=== PATIENT | female | born 1990 | race Two or more races ===

== ENCOUNTER → 2023-07-29 | Outpatient (REF) | payer OTHER | LOC: M SFHCWAGY 16:55 | PROVIDERS: ATTEND Obstetrics & Gynecology | DX: Z36.89 Encounter for other specified antenatal screening (principal); Z3A.36 36 weeks gestation of pregnancy ==

== ENCOUNTER 2023-08-04 20:20 | Outpatient (CLI) | payer OTHER ==
[~2023-08-04] VITALS: Ht 157.5 cm; Wt 80.2 kg
[2023-08-04] MEDS ORDERED: PRENTAB9 PO (20:31)
[2023-08-04 20:39] VITALS: BP 117/74
[2023-08-04 21:13] LABS: APPEARANCE, URINE HAZY (CLEAR); BACTERIA, URINE AUTO 1+ (NEGATIVE); BILIRUBIN, URINE AUTO 1+ (NEGATIVE); BLOOD, URINE BLOOD NEGATIVE (NEGATIVE); CALCIUM OXALATE CRYSTALS SMALL; COLOR, URINE AMBER (YELLOW); GLUCOSE, URINE (UA) AUTO NEGATIVE (NEGATIVE); KETONE, URINE AUTO TRACE mg/dL (NEGATIVE); LEUKOCYTE ESTERASE, URINE AUTO NEGATIVE (NEGATIVE); MUCUS, URINE SMALL (NEGATIVE); NITRITE, URINE AUTO NEGATIVE (NEGATIVE); PROTEIN, URINE AUTO 2+ mg/dL (NEGATIVE); RBC, URINE AUTO 1 /HPF (0-3); SPECIFIC GRAVITY URINE AUTO 1.032 (1.002-1.035); SQUAMOUS EPITHELIAL CELL UR AU 10 /HPF (0-6); WBC, URINE AUTO 3 /HPF (0-3)
[2023-08-04] MEDS: LR 500 ML IV ONE (22:10)
[2023-08-04 22:30] LABS: BASO % 0.3 % (0.0-1.0); EOS # 0.1 10^3/uL (0.0-0.5); EOS % 0.5 % (0.0-3.0); HEMATOCRIT 31.9 % (36.0-47.0); HEMOGLOBIN 10.7 g/dl (12.0-15.5); LYMPH # 2.3 10^3/uL (1.5-5.0); LYMPH % 19.3 % (24.0-44.0); MEAN CORPUSCULAR HGB CONC 33.5 g/dl (32.0-36.5); MEAN CORPUSCULAR VOLUME 80.6 fl (80.0-96.0); MONO # 0.9 10^3/uL (0.0-0.8); MONO % 7.7 % (2.0-8.0); NEUTROPHILS # 8.6 10^3/uL (1.5-8.5); NEUTROPHILS % 71.9 % (36.0-66.0); PLATELET COUNT, AUTOMATED 302 10^3/uL (150-450); RED BLOOD COUNT 3.96 10^6/uL (4.00-5.40); WHITE BLOOD COUNT 11.9 10^3/uL (4.0-10.0)
[2023-08-04 22:54] VITALS: BP 108/71
[2023-08-04] MEDS: LR 1,000 ML IV SCH (23:49)
== END 2023-08-04 23:58 | disposition home or self-care (01) ==
LOC: M LDO 20:20
PROVIDERS: ATTEND Obstetrics & Gynecology
DX: O47.1 False labor at or after 37 completed weeks of gestation (principal); Z3A.37 37 weeks gestation of pregnancy; Z87.59 Personal history of other complications of pregnancy, childbirth and the puerperium
CPT/HCPCS: 59025; 81001; 85025; G0463

== ENCOUNTER 2023-08-17 12:43 | Inpatient (IN) | payer OTHER ==
[2023-08-17] VITALS (24 sets, daily range): BP systolic 86–117; BP diastolic 50–76
[~2023-08-17] VITALS: Ht 157.5 cm; Wt 79.6 kg
[~2023-08-17 12:43] MED LIST: PRENTAB9 PO
[2023-08-17] MEDS ORDERED: LIDOCAINE 1% MDV 20ML VIAL INFIL PRN (12:50)
[2023-08-17] MEDS ORDERED: CARBOPROST TROMETHAMINE 250 MCG/ML AMP IM PRN (12:50)
[2023-08-17] MEDS ORDERED: OXYTOCIN INJ 10UNITS/ML 1ML VIAL IM PRN (12:50)
[2023-08-17] MEDS ORDERED: TRANEXAMIC ACID INJection 1,000 MG in NS 100 ML IV PRN (12:50)
[2023-08-17] MEDS ORDERED: METHYLERGONOVINE MALEATE 0.2MG/ML 1ML VIAL IM PRN (12:50)
[2023-08-17] MEDS ORDERED: OXYTOCIN DRIP 30 UNITS in IV 1 EA IV PRN (12:50)
[2023-08-17] MEDS ORDERED: ASPI-226 PO (13:01)
[2023-08-17] MEDS ORDERED: HOME MED LIST COMPLETE! XX SCH (13:05)
[2023-08-17 14:11] LABS: HEMATOCRIT 32.7 % (36.0-47.0); HEMOGLOBIN 10.9 g/dl (12.0-15.5); MEAN CORPUSCULAR HEMOGLOBIN 26.5 pg (27.0-33.0); MEAN CORPUSCULAR HGB CONC 33.3 g/dl (32.0-36.5); MEAN CORPUSCULAR VOLUME 79.4 fl (80.0-96.0); PLATELET COUNT, AUTOMATED 292 10^3/uL (150-450); RED BLOOD COUNT 4.12 10^6/uL (4.00-5.40); WHITE BLOOD COUNT 9.4 10^3/uL (4.0-10.0)
[2023-08-17] MEDS: miSOPROStol 50MCG 1/2 TABLET PO SCH (14:17)
[2023-08-17 15:11] LABS: HEPATITIS C VIRUS ABY INDEX < 0.02 INDEX (<0.8)
[2023-08-17] MEDS: LR 1,000 ML IV SCH (18:23)
[2023-08-17] MEDS: OXYTOCIN DRIP 30 UNITS in IV 1 EA IV SCH (18:24)
[2023-08-17] MEDS ORDERED: NALOXONE INJ 0.4MG/1ML VIAL IV PRN (19:50)
[2023-08-17] MEDS ORDERED: diphenhydrAMINE 50MG/ML VIAL IV PRN (19:50)
[2023-08-17] MEDS ORDERED: EPIDURAL/PCA KEYS XX PRN (19:50)
[2023-08-17] MEDS ORDERED: ONDANSETRON 4MG 2ML VIAL IV PRN (19:50)
[2023-08-17] MEDS: LR 500 ML IV PRN (20:05)
[2023-08-17] MEDS: FENTANYL/ROPIVACAINE/NACL BAG 100 ML EPIDURAL SCH (20:05)
[2023-08-18] VITALS (21 sets, daily range): BP systolic 83–118; BP diastolic 50–72; O2SAT 98
[2023-08-18] MEDS: ePHEDrine SULFATE 25 MG/5 ML(5MG/ML) SYRINGE IVP PRN (01:50)
[2023-08-18] MEDS ORDERED: RHO(D) IMMUNE GLOBULIN/MALTOSE 500MCG(2500IU)/2.2ML VIAL (WINRHO) IM SCH (04:30)
[2023-08-18] MEDS ORDERED: ACETAMINOPHEN TAB 650MG DOSE (2X325MG) PO PRN (04:30)
[2023-08-18] MEDS ORDERED: METHYLERGONOVINE MALEATE 0.2 MG TAB PO PRN (04:30)
[2023-08-18] MEDS: OXYTOCIN DRIP 30 UNITS in IV 1 EA IV PRN (04:40)
[2023-08-18] MEDS: IBUPROFEN 600MG TAB PO PRN (06:15)
[2023-08-18] MEDS: ACETAMINOPHEN 500 MG TAB PO PRN (06:54)
[2023-08-18] MEDS: PERCOCET 5MG/325MG TAB PO ONE (07:34)
[2023-08-18] MEDS: PRENATAL VITAMINS CHEWABLE TABLET PO SCH (07:34)
[2023-08-18] MEDS: DIBUCAINE 1% OINTMENT 30GM TOP PRN (07:35)
[2023-08-18] MEDS: IBUPROFEN 800 MG TAB PO PRN (14:44)
[2023-08-18] MEDS: DOCUSATE SODIUM 100MG CAPSULE PO PRN (22:56)
[2023-08-19 06:00] VITALS: BP 98/58; O2SAT 97
[2023-08-20] MEDS ORDERED: MEASLES,MUMPS,RUBELLA VACCINE INJ (MMR-II) SC.IMMUN ONE (09:00)
== END 2023-08-19 18:00 | disposition home or self-care (01) | DRG 807 ==
LOC: M LDI 12:43 → M OBS 08-18 06:26
PROVIDERS: ADMIT Advanced Practice Midwife; ATTEND Advanced Practice Midwife
PROC: 3E033VJ Introduction of Other Hormone into Peripheral Vein, Percutaneous Approach (ICD-10-PCS; 2023-08-17)
PROC: 3E0P7VZ Introduction of Hormone into Female Reproductive, Via Natural or Artificial Opening (ICD-10-PCS; 2023-08-17)
PROC: 10E0XZZ Delivery of Products of Conception, External Approach (ICD-10-PCS; principal; 2023-08-18)
PROC: 0HQ9XZZ Repair Perineum Skin, External Approach (ICD-10-PCS; 2023-08-18)
DX: O70.0 First degree perineal laceration during delivery (principal); Z37.0 Single live birth; Z3A.39 39 weeks gestation of pregnancy

== ENCOUNTER → 2023-11-07 | Outpatient (REF) | payer OTHER ==
[~2023-11-07] MED LIST changes: +ASPI-226 PO
[2023-11-09 18:59] LABS: HPV APTIMA Not Detected (Not Detected)
== END ==
LOC: M SFHCWAGY 17:40
PROVIDERS: ATTEND Advanced Practice Midwife
DX: Z12.4 Encounter for screening for malignant neoplasm of cervix (principal)
CPT/HCPCS: 87624; G0123